=== PATIENT | female | born 1995 | race Caucasian/White ===

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

== ENCOUNTER 2017-02-13 12:47 | Emergency (ER) | payer MEDICAID, OTHER ==
[~2017-02-13] VITALS: Ht 165.1 cm; Wt 43.0 kg
[~2017-02-13 12:47] MED LIST changes: +ADDE20XR PO; +CITA20TA4 PO; -GUAI100S6 PO; -LAMI200T PO; +LAMO200T PO; +TYLETAB34 PO; -ZITH250T PO
[2017-02-13 12:55] VITALS: BP 137/90; PULSE 83; RESP 16; TEMP 97.8; O2SAT 97
--- NOTE | 2017-02-13 13:09 | PD ---
HPI Chief Complaint: Cold / Flu Symptoms Time Seen by Provider: 13:07 Travel History International Travel<30 days: No Contact w/Intl Traveler<30days: No Traveled to known affect area: No History of Present Illness HPI The patient was seen and examined in the presence of the nurse. This patient complains of runny nose and congestion and cough and sore throat. Duration 3 days. Severity of symptoms is mild. No alleviating factors PFSH Past Medical History ADHD: Yes Diminished Hearing: No Immunizations Current: Yes Seizures: Yes ?: Not Past Surgical History Tonsillectomy: Yes Social History Alcohol Use: No (DEINES) Tobacco Use: No Substance Use: Yes (marijuana/DENIES ON VISIT 07/22/14) Allergies-Medications (Allergen,Severity, Reaction): Coded Allergies: No Known Allergies (Verified Adverse Reaction, Unknown, 02/13/17) Reported Meds & Prescriptions Reported Meds & Active Scripts Active Reported Lamotrigine 200 Mg Tab 200 Mg PO DAILY Review of Systems General / Constitutional: No: Fever Cardiovascular: No: Chest Pain or Discomfort Respiratory: Positive: Cough Physical Exam Narrative RESPIRATORY: Respiratory effort unlabored, no retractions or use of accessory muscles. Breath sounds are clear and symmetric. Throat clear GASTROINTESTINAL: Abdomen soft, non-tender, nondistended. Positive bowel sounds. No hepato-splenomegaly, or palpable masses. No guarding. Data Data Last Documented VS Vital Signs Date Time Temp Pulse Resp B/P (MAP) Pulse Ox O2 Delivery O2 Flow Rate FiO2 02/13/17 12:55 97.8 83 16 137/90 (106) 97 MDM Medical Decision Making Medical Screen Exam Complete: Yes Emergency Medical Condition: Yes Medical Record Reviewed: Yes Differential Diagnosis URI, bronchitis, flu syndrome Narrative Course I have reviewed the patient's electronic medical record. Presentation consistent with acute viral syndrome. Supportive care discussed. No indication for antibiotics Diagnosis Primary Impression: Acute viral syndrome Additional Instructions: The patient was advised to follow up with their physician and return if they worsen. Med/Other Pt SpecificInfo: Other Disposition: 01 DISCHARGE HOME Condition: Stable Paxton Swanson MD Feb 13, 2017 13:09
== END 2017-02-13 13:38 | disposition home or self-care (01) ==
LOC: PHEFT 12:47
DX: B34.9 Viral infection, unspecified (principal); F90.9 Attention-deficit hyperactivity disorder, unspecified type; R56.9 Unspecified convulsions; Z79.899 Other long term (current) drug therapy
CPT/HCPCS: 99281